=== PATIENT | female | born 2000 | race Caucasian/White ===

== ENCOUNTER 2021-12-03 21:55 | Emergency (ER) | payer OTHER, SELFPAY ==
[2021-12-03 22:00] VITALS: BP 138/98; PULSE 96; RESP 18; TEMP 36.7; O2SAT 99
[2021-12-04 01:08] VITALS: BP 122/72; PULSE 105; TEMP 36.9; O2SAT 100
== END 2021-12-04 02:45 | disposition left against medical advice (07) ==
PROVIDERS: Emergency Provider Emergency Medicine
DX: Z53.21 Procedure and treatment not carried out due to patient leaving prior to being seen by health care provider (principal)
CPT/HCPCS: 99281